=== PATIENT | male | born 1975 ===

== ENCOUNTER 2021-09-21 12:52 | Outpatient (CLI) | payer SELFPAY ==
--- NOTE | 2021-09-21 16:48 | XRAY Report ---
PROCEDURE: Finger(s) RT INDICATIONS: PUNCTURE WOUND TO RIGHT MIDDLE FINGER TECHNIQUE: AP hand, 2 views of the right middle finger(s) acquired. COMPARISON: None FINDINGS: Bones: No fractures or dislocations. No suspicious bony lesions. Soft tissues: No suspicious soft tissue calcifications. No soft tissue gas or radiopaque foreign sha dy. IMPRESSION: Unremarkable right middle finger. No radiopaque foreign body. Reviewed by: You Luciano MD on 09/21/2021 4:46 PM PDT Approved by: You Luciano MD on 09/21/2021 4:46 PM PDT Station ID: [id number]
== END 2021-09-21 12:53 | disposition home or self-care (01) ==
LOC: DI.S 12:52
PROVIDERS: ATTEND Emergency Medicine
DX: S61.232A Puncture wound without foreign body of right middle finger without damage to nail, initial encounter (principal)